=== PATIENT | female | born 1985 | race Caucasian/White ===

== ENCOUNTER → 2022-08-15 09:04 | Outpatient (CLI) | payer OTHER, SELFPAY ==
--- NOTE | 2022-08-15 09:09 | US_ITS ---
FINAL REPORT TECHNIQUE: Sonographic images of the right upper quadrant were obtained. CLINICAL HISTORY: RUQ PAIN FINDINGS: PANCREAS: Unremarkable. LIVER: Homogeneous. No focal hepatic lesion. No intrahepatic biliary ductal dilatation. GALLBLADDER: There are gallstones. No gallbladder wall thickening or pericholecystic fluid. COMMON DUCT: 2 mm. Normal for age. RIGHT KIDNEY: The right kidney measures 10.2 cm. There is no hydronephrosis, mass, or stone. FREE FLUID: None. IMPRESSION: Gallstones within the gallbladder, otherwise unremarkable exam. Reviewed, Interpreted and Dictated by Leann Up MD Transcribed by Nata Kirkpatrick Authenticated and [facility]
== END ==
PROVIDERS: PCP Family Medicine; Visit Provider Family Medicine
DX: R10.11 Right upper quadrant pain (principal)
CPT/HCPCS: 76705

== ENCOUNTER → 2022-08-17 10:21 | Outpatient (CLI) | payer OTHER, SELFPAY ==
--- NOTE | 2022-08-17 10:28 | MM_ITS ---
PROCEDURE INFORMATION: Exam: Bilateral Screening 3D Mammography Exam date and time: 08/17/2022 10:56 AM Age: 37 years old Clinical indication: Baseline. Her maternal grandmother had breast cancer. TECHNIQUE: Imaging protocol: Bilateral Screening tomosynthesis and 2D mammography including computer-aided detection (CAD) when performed. COMPARISON: No relevant prior studies available. FINDINGS: MAMMOGRAPHY: Breast composition: There are scattered areas of fibroglandular density. Mass: No suspicious mass. Architectural distortion: None. Calcifications: No suspicious calcifications. Asymmetric density: None. Skin thickening: None. Axillary adenopathy: None. IMPRESSION: No mammographic evidence of malignancy. Annual screening is recommended unless otherwise clinically indicated. ASSESSMENT: BI-RADS Category 1: Negative
== END ==
PROVIDERS: PCP Family Medicine; Visit Provider Family Medicine
DX: Z12.31 Encounter for screening mammogram for malignant neoplasm of breast (principal); Z80.3 Family history of malignant neoplasm of breast
CPT/HCPCS: 77063; 77067

== ENCOUNTER 2022-09-25 09:37 | Day surgery (SDC) | payer OTHER, SELFPAY ==
[2022-09-19 11:31] VITALS: BMI 27.4
[2022-09-25] VITALS (10 sets, daily range): BP systolic 107–160; BP diastolic 57–95; PULSE 64–102; RESP 12–18; TEMP 36.2–43; O2SAT 93–100
[2022-09-25 09:56] LABS: Urine Pregnancy, HCG Qual. Negative (Negative)
--- NOTE | 2022-09-25 11:07 | EXP.ANES.CKL ---
[facility] Disclaimer: The information contained in this section may have been updated after the patient was seen, as this information can be updated by other users. Medical History Allergies Kidney stone PCOS (polycystic ovarian syndrome) Surgical History History of ankle surgery Family History Father Family history of hypertension Grandmother Family history of myocardial infarction Other Family history of cancer Social History Smoking Status: Current every day smoker alcohol intake: never substance use type: denies use current occupational status: employed Travel in the last 8 weeks: Inside the [place] [facility] Anesthesia Checklist Patient Identification Patient Identification: Arm Band Structural Data Admitted From: Home Planned Operative Procedure/s: Laparoscopic Cholecystectomy Consent for Planned Operative Procedure(s) Verified: Yes Verified Documents: Surgical Consent and History and Physical NPO Status Verified Time NPO: 00:00 Additional verifications Anesthesia Reactions: No Hx Blood Transfusions: No Blood Transfusion Reaction: No Airway Assessment C-Spine Mobility Assessed: Yes TMJ Mobility Assessed: Yes Dentition: Good Dentition Neurological Assessment Level of Consciousness: Awake and Alert Anesthesia Plan Anesthesia Risk discussed: Yes Anesthesia Plan: Verified ASA Class: II Anesthesia Type: General
--- NOTE | 2022-09-25 12:58 | EXP.OP.NOTE ---
Date of procedure: 09/25/22 Pre-op Diagnosis:: Symptomatic gallstones Post-op Diagnosis:: Same Procedure performed:: Laparoscopic cholecystectomy Surgeon:: David Mcmillan MD FINISHING MACHINE OPERATOR AUTOMATIC:: [place] Anesthesia: GETA Estimated blood loss (mL): 20 Clinical Note:: Patient is a very pleasant 37-year-old female from [place] referred by Dr. Recinos for gallstones.? Patient states that several weeks ago she had developed some symptoms of significant pain under her right ribs.? This felt like a fist like pressure initially.? It persisted for several hours.? It was somewhat intermittent and sporadic but that she did notice that it began to be triggered by eating.? She has some radiation of the pain to her back.? She has had a couple of more severe attacks consistent with biliary colic that occurred after she had eaten poorly according to her.? She has been afraid to eat because of this.? She describes early satiety.? She actually had been seen in the emergency department at .? She does have these records and it appears as though her comprehensive metabolic panel and CT scan are unremarkable.? She underwent gallbladder ultrasound on 08/15/2022 which reveals gallstones within the gallbladder with normal common bile duct. She was seen in the office as a consultation on 08/31/2022. It was felt that the patient's symptoms seemed to be consistent with symptomatic gallstones.? I reviewed her imaging and she has a rather large gallstone measuring greater than 2.8 cm.? In the office patient had multiple questions and questions regarding treatment options.? Options were discussed with her.? She did ask also about indications for a HIDA scan.? I feel this is not necessary given the nature of her symptoms and findings on the ultrasound.? Options were discussed and plan will be for laparoscopic possibly open cholecystectomy.? Nature and details of the proposed procedure along with the associated risks and expected outcome were explained to the patient.? She wished to proceed. In the preoperative holding area patient had additional questions all of which were answered appropriately. Operative findings:: She had a distended chronically thickened gallbladder obscured with omental adhesions with a moderately large stone in the fundus of the gallbladder. There were multiple layers of chronic fibrous adhesions surrounding the gallbladder. Operative note:: Patient was taken to the operating room. She was given preoperative intravenous antibiotic. In the operating room she was placed in a supine position. General anesthesia was induced via endotracheal tube. Abdomen was prepped and draped in the standard surgical fashion. Subumbilical skin incision was made hemoglobin forming abdominal wall lift Veress needle was inserted. CO2 pneumoperitoneum was achieved to 15 mmHg. 11 mm optical trocar was inserted at the umbilicus. She was positioned in reverse Trendelenburg and left side down. A couple 5 mm trocars were inserted in the right upper abdomen. 10 mm trocar was inserted in the epigastrium. Gallbladder was retracted anteriorly and superiorly over the dome of the liver. There was a prominent stone in the fundus of the gallbladder. Gallbladder was mostly obscured with omental adhesions which were taken down using blunt dissection. Infundibulum of the gallbladder was retracted anterolaterally. There were multiple layers of fibrous adhesions obscuring the gallbladder. Ultimately the cystic duct was identified. It appeared as though the gallbladder tapered at its neck to the cystic duct. The cystic artery was actually displaced somewhat to the right of the cystic duct. Once dissection was carried out it was oriented appropriately. Although anatomy was somewhat difficult to discern initially ultimately the cystic duct and cystic artery were clearly identified and the critical view of safety. Cystic duct was multiply clipped and sharply divided. Cystic artery was carefully coagulated with
--- NOTE | 2022-09-25 13:01 | P.PNANES_ITS ---
[facility] Anesthesia Record Part I Anesthesia Record I Intake, IV Amount: 700 Estimated blood loss (mL): 10 Urine output (mL): 0 Blood Pressure: 110/57 SaO2: 93 Pulse Rate: 64 Respiratory Rate: 12 Temperature: 97.3 F Patient is:: Drowsy, Nasal O2, Oral/Nasal airway and Stable Stable to PACU at:: 12:58
--- NOTE | 2022-09-25 13:32 | SUR.PHASEI ---
1328- detailed report called to cindi roper in post op 1329- pt left in stable condition with cindi roper. All dressings CDI, VSS
--- NOTE | 2022-09-26 08:27 | EXP.ANES.II ---
[facility] Anesthesia Record Part II Anesthesia Record Part II Discharge Time: 13:28 Destination: Surgical Day Care (OP Surgery) PACU nurse assessment reviewed?: Yes Patient Condition:: Good Anesthesia Complications:: None Swallowing reflex intact?: Yes Cyanosis?: No Blood Pressure: 160/73 Pulse Rate: 98 Temperature: 97.2 F Mental Status: Alert & Oriented Pain level:: 0 Nausea and/or vomitting:: None Intake, IV Amount: 0
[2022-09-26 08:28] VITALS: BP 160/73; PULSE 98; TEMP 36.2
== END 2022-09-25 14:10 | disposition home or self-care (01) ==
PROVIDERS: PCP Family Medicine; Visit Provider Surgery
PROC: 0FT44ZZ Resection of Gallbladder, Percutaneous Endoscopic Approach (ICD-10-PCS; CPT 47562; principal; 2022-09-25 11:15)
DX: K80.10 Calculus of gallbladder with chronic cholecystitis without obstruction (principal); Z72.0 Tobacco use; K66.0 Peritoneal adhesions (postprocedural) (postinfection)
CPT/HCPCS: 47562; 81025; 96374; J2405